=== PATIENT | female | born 1960 | race Two or more races ===

== ENCOUNTER 2018-02-04 12:15 | Inpatient (IN) | payer OTHER ==
[~2018-02-04] VITALS: Ht 162.6 cm; Wt 139.7 kg
[2018-02-04] MEDS ORDERED: AMLODIPINE BESI25 GM (13:15)
[2018-02-04] MEDS ORDERED: LABETALOL HCL200 MG PO (13:16)
[2018-02-04] MEDS ORDERED: IRBESARTAN300 MG PO (13:16)
[2018-02-12] MEDS ORDERED: AMOX-CLAV 875-1 EACH PO (11:02)
[2018-02-12] MEDS ORDERED: GABAPENTIN800 MG PO (11:02)
[2018-02-12] MEDS ORDERED: DOCUSATE SODIU100 MG PO (11:02)
[2018-02-12] MEDS ORDERED: CLONAZEPAM1 MG PO (11:04)
[2018-02-12] MEDS ORDERED: PERCOCET 5-3251 EACH PO (11:04)
== END 2018-02-12 13:03 | disposition home or self-care (01) | DRG 454 ==
LOC: O/R 02-11 05:28 → PED 02-11 05:28 → RECOVERY 02-11 12:15 → PED 02-11 13:18
PROVIDERS: Orthopaedic Surgery Orthopaedic Surgery of the Spine
PROC: 0SG0071 Fusion of Lumbar Vertebral Joint with Autologous Tissue Substitute, Posterior Approach, Posterior Column, Open Approach (ICD-10-PCS; 2018-02-11)
PROC: 0ST20ZZ Resection of Lumbar Vertebral Disc, Open Approach (ICD-10-PCS; 2018-02-11)
PROC: 0SG00AJ Fusion of Lumbar Vertebral Joint with Interbody Fusion Device, Posterior Approach, Anterior Column, Open Approach (ICD-10-PCS; 2018-02-11)
PROC: 07DS3ZZ Extraction of Vertebral Bone Marrow, Percutaneous Approach (ICD-10-PCS; 2018-02-11)
PROC: 0SG00A0 Fusion of Lumbar Vertebral Joint with Interbody Fusion Device, Anterior Approach, Anterior Column, Open Approach (ICD-10-PCS; principal; 2018-02-11 13:00)
DX: M48.061 Spinal stenosis, lumbar region without neurogenic claudication (principal); M51.06 Intervertebral disc disorders with myelopathy, lumbar region; M43.16 Spondylolisthesis, lumbar region; I10 Essential (primary) hypertension